=== PATIENT | male | born 1990 | race Caucasian/White ===

== ENCOUNTER 2023-05-07 11:41 | Emergency (ER) | payer OTHER, SELFPAY ==
[2023-05-07 11:42] VITALS: BP 137/83; PULSE 98; RESP 16; TEMP 36.8; O2SAT 98; BMI 29.7
--- NOTE | 2023-05-07 12:14 | EKG12_ITS ---
Test Reason : CP/ARM PAIN Blood Pressure : / mmHG Vent. Rate : 080 BPM Atrial Rate : 080 BPM P-R Int : 142 ms QRS Dur : 082 ms QT Int : 350 ms P-R-T Axes : 054 074 049 degrees QTc Int : 403 ms Normal sinus rhythm with sinus arrhythmia Normal ECG Confirmed by SOLO MORGAN, PHANI ([id number]), art editor MIRIAN MANTILLA ([id number]) on 05/10/2023 10:14:54 AM Referred By: NINA/MARIA DOLORES Confirmed By:PHANI BANDA MD
[2023-05-07 12:30] LABS: Absolute Lymphocyte Count 1.58 X10^3/uL (0.83-4.51); Absolute Neutrophil Count 2.4 X10^3/uL (2.0-7.7); Basophil# 0.04 X10^3/uL; Basophil% 0.9 % (0-1); Hematocrit 43.9 % (40-54); Lymphocyte # 1.58 X10^3/ul (0.83-4.51); Lymphocyte % 36.9 % (19-41); Mean Corp Hgb Conc 34.2 g/dL (32-36); Mean Corpuscular Hgb 29.9 pg (27.0-32.0); Mean Corpuscular Volume 87.6 fL (80-94); Mean Platelet Vol. 9.8 fl (6.2-12.0); Monocyte# 0.31 X10^3/uL; Monocyte% 7.2 % (0-10); NRBC Flagged by Analyzer 0 % (0-5); Neutrophil # 2.35 X10^3/uL (2.7-7.7); Platelet Count 227 K/mm3 (150-450); RBC Distribution Width CV 11.6 % (11.6-14.6); RBC Distribution Width SD 37.2 fl (35.1-43.9); Red Blood Count 5.01 M/mm3 (4.6-6.2); White Blood Count 4.3 K/mm3 (4.4-11.0)
[2023-05-07 12:32] VITALS: O2SAT 98
--- NOTE | 2023-05-07 12:32 | ED.VIS.CHEST ---
HPI History of Present Illness Chief Complaint: Chest Pain Detail of Chief Complaint: Left-sided chest pain. Informant: patient Onset/Context/Timing Onset: Days Activity at onset: gradual Timing: Intermittent Quality: Positive for Pain Location: Left Parasternal and Left Chest Current Severity: Mild Maximum Severity: Mild Worsened By: Nothing Relieved By: Nothing Associated Symptoms: Negative for Nausea, Vomiting, Diaphoresis, Dyspnea, Cough, Fever, Lightheadedness, Acid Reflux or Palpitations Narrative Narrative: 33-year-old healthy male no significant past medical history. Currently on no medications. States the last 1 to 2 weeks he has had intermittent left-sided chest pain. He describes it as a discomfort. It is not associated with exertion. Denies any trouble walking. Denies any shortness of breath. No history of DVT or PE. No leg pain or swelling. No recent travel, surgery or immobilization. Denies any hemoptysis. No pleuritic pain. No cardiac history. Denies any recent illness. He has had some discomfort in the musculature of his upper back and left shoulder. Patient denies any fall injury or trauma. Prior Similar Symptoms: No Recent Illness/Hospitalization: No CVD Risk Factors: Negative for Hypertension, Diabetes, Hypercholesterolemia or Family History 1' </=55 PE Risk Factors: Negative for Recent Travel/Surgery, Recent Immobilization, Prior DVT or PE, Cancer or OCP + Smoking + >/=35 TAD Risk Factors: Negative for Marfan's Syndrome [facility] Medical History No acute medical problems no medical history Home Medications NK 05/07/23 [History Last Taken Unknown] Allergy/AdvReac Type Severity Reaction Status Date / Time No Known Allergies Allergy Verified 05/07/23 11:42 Surgical History no surgical history no surgical history Social History Smoking Status: Never smoker ROS ROS ED ROS Narrative Atypical nonexertional left-sided chest pain. Left upper back and shoulder musculoskeletal pain. Review of Systems ROS Unobtainable: Denies due to encephalopathy Constitutional Constitutional ED: Denies chills or fever(s) Eyes Eyes: Reports none ENT ENT ED: Denies ear pain Cardiovascular Cardiovascular: Reports as per HPI and chest pain; Denies palpitations or racing heartbeat Respiratory/Chest Respiratory/Chest: Denies cough or dyspnea Gastrointestinal Gastrointestinal: Denies abdominal pain, constipation, diarrhea, melena, nausea or vomiting Genitourinary Genitourinary ED: Denies dysuria or hematuria Musculoskeletal Musculoskeletal: Reports back pain; Denies arthralgias or neck pain Integumentary Denies abscess or Abrasions Neurologic Neurologic: Denies headache(s) Psychiatric Psychiatric: Denies anxiety or depression Endocrine Endocrinology: Denies cold intolerance Hematologic/Lymphatic Hematologic/Lymphatic: Denies easy bleeding, easy bruising or lymphadenopathy Allergic/Immunologic Allergic/Immunologic ED: Denies mouth swelling, tongue swelling or urticaria EXAM Physical Exam Narrative Exam Narrative: 33-year-old male vital signs stable afebrile. Pulse ox 98% on room air no signs hypoxia. H EENT exam normal. Neck nontender no JVD. Lungs clear to auscultation bilaterally. Heart regular rate and rhythm rate in the 90s. No murmur. Chest wall nontender. Ribs nontender. Abdomen soft nontender. Moving all 4 extremities. Calves are nontender without edema or cords. Equal symmetrical radial pulses. Upper back he has some mild reproducible musculoskeletal tenderness in the upper left back. There is no signs of trauma. Neurologically is awake and alert with no focal motor deficits. Patient has equal symmetrical radial pulses. Exam benign. Const Vital Signs: 05/07/23 11:42 05/07/23 12:12 05/07/23 12:32 Temperature 98.2 F Temperature Source Temporal Pulse Rate 98 Respiratory Rate 16 Respiratory Effort Normal Non-Labored Blood Pressure 137/83 H Blood Pressure Mean 101 Pulse Ox 98 98 Oxygen Delivery Method Room Air Room Air 05/07/23 14:10 Temperature Temperature Source Pulse Rate 90 Respiratory Rate 17 Respiratory Effort Blood Pressure 116/79 Blood Pressure Mean 91 Pulse Ox 100 Oxygen Delivery Method Room Air Positive well nourished and well developed; Negative for obese, cachectic, contractures or unkempt General Appearance ED: well developed and NAD; Negative for unkempt, cachectic, contractures or pallor Nutritional Appearance: Negative for cachectic or obese HEENT Reports moist mucous membranes normocephalic and atraumatic; Negative for trauma or tenderness Eyes PERRL and EOMs intact bilaterally General Eye ED: Negative for pale conjunctiva, scleral icterus or other Neck no lymphadenopathy, supple and no JVD General: Negative for tenderness Chest Wall inspection of chest normal and palpation of chest normal Chest: Negative for tenderness Resp normal respiratory effort and clear to auscultation bilaterally Effort and Inspection: Negative for respiratory distress Auscultation: Negative for rales, rhonchi or wheezes Cardio regular rate, regular rhythm, S1 normal heart sound, S2 normal heart sound and no murmurs Rhythm: Negative for abnormal rhythm Peripheral Pulses: pulses 2+ throughout GI normal to inspection, nondistended, normoactive bowel sounds, soft to palpation, non-tender, non-distended and no masses Auscultation: Negative for hyperactive bowel sounds Palpation: Negative for splenomegaly or mass Back/Spine no CVA tenderness and no thoracic nor lumbar tenderness General Back: Negative for CVA tenderness Cervical Spine: Negative for cervical spine tenderness Extremity normal to inspection General Extremety ED: Negative for edema, pulses abnormal or tenderness General Extremity: Negative for edema or pulses abnormal Neuro oriented x3 and CN's II-XII intact bilaterally Sensorium / Orientation: awake, alert, oriented to person, oriented to place and oriented to time; Negative for confused, lethargic or stuporous Motor Exam: strength 5/5 throughout Psych mental status grossly normal Appearance: Negative for unkempt Attitude: No agitated Mood & Affect: Negative for depressed, anxious or tearful Skin no rashes or lesions noted and no wounds General Skin Exam: Negative for jaundice or pallor Rashes: No rashes noted Trauma: Negative for abrasion, laceration or puncture Heart Score History: Slightly/Non-Suspicious ECG: Normal Age: </= 45 years Risk Factors: No Risk Factors Troponin: </= Normal Limit Score: 0 MDM MDM MDM Narrative Medical decision making narrative: 33-year-old male with atypical nonreproducible chest pain very well may be musculoskeletal from his upper back. Undergo cardiac workup. He has no DVT or PE risk factors. No family history. And no physical findings of that. I do not think he needs a D-dimer. Will undergo cardiac workup. If it is negative he will be discharged home. Repeat exam the patient is doing well at 2:30 PM. We went over all his test results. They are normal. He has reproducible upper left back soft tissue muscular pain. He will be treated with Motrin. Outpatient follow-up as needed. Patient is comfortable with the plan. History & Record Review Discussion w/independent historian: Patient Lab Data Attestation: I reviewed the patient's lab results. Lab results narrative: CBC white count of 4.3. H&H of 15 and 43. Platelets 227. Chemistries normal. Gap of 4. Normal BUN and creatinine. Glucose 107. Troponin 9. Labs: Laboratory Results - last 24 hr 05/07/23 12:20 WBC 4.3 L RBC 5.01 Hgb 15.0 Hct 43.9 MCV 87.6 MCH 29.9 MCHC 34.2 RDW Std Deviation 37.2 RDW Coeff of Jennifer 11.6 Plt Count 227 MPV 9.8 Immature Gran % (Auto) 0.000 Neut % (Auto) 55.0 Lymph % (Auto) 36.9 [place] % (Auto) 7.2 Eos % (Auto) 0.0 Baso % (Auto) 0.9 Absolute Neuts (auto) 2.4 Absolute Lymphs (auto) 1.58 Nucleated RBC % 0 Sodium 140 Potassium 4.3 Chloride 108 H Carbon Dioxide 28.0 Anion Gap 4 L BUN 16 Creatinine 1.11 Estim Creat Clear Calc 115.25 Est GFR (MDRD) Af Amer 99 Est GFR (MDRD) Non-Af 82 BUN/Creatinine Ratio 14.4 Glucose 107 H Calcium 9.2 Troponin I High Sens 9 Radiography Chest X-Ray - ED: 1 View, Read by ED Physician, Heart, Lungs, Mediastinum, Bony Structures and No Acute Disease Diagnostic Testing: Clinical Impression(s) from Imaging Studies Chest X-Ray 05/07/23 12:35 IMPRESSION: Normal x-ray examination of the chest. Electronically Signed: Daniel Dixon MD at 12:44 EST , Chest x-ray, portable, single view, interpreted by myself and the radiologist shows no acute abnormality. Normal cardiac silhouette. Normal aorta. Normal mediastinum. Normal lung colin. Rhythm Strip Rhythm Strip: Sinus Rhythm Rate: 80 Ectopy: None EKG Initial EKG: Attestation: I personally reviewed and interpreted this EKG as follows: Interpretation: Sinus Rhythm and No Acute Injury Pattern Comments: Normal sinus rhythm rate of 80 no acute signs of VA or ischemia. No S1 every 3 of T3. No old EKG available for comparison. Prior EKG tracings: not available for review Prior: No Prior Discharge Plan Triage Chief Complaint: Chest Pain ED Provider: William iSngh Dx/Rx/DC Orders Clinical Impression: Back strain, Chest pain Instructions: ED Chest Pain, Noncardiac Prescriptions: No Action NK Primary Care Provider: Care Physician,No Primary Referrals: Bienvenido Reyes MD [Med Staff - [employer]] - 1 Week if not improving Care Physician,No Primary [Primary Care Provider] - Activity Restrictions/Additional Instructions: All your test today, EKG and chest x-ray were normal. Leave your discomfort is from strain of the muscle in your left upper back. Motrin for pain. Hot shower, warm bath, hot tub and massage. This should feel better. Follow-up if you are not improving. Disposition Disposition: Home, Self Care
--- NOTE | 2023-05-07 12:35 | RAD_ITS ---
STUDY: X-RAY CHEST REASON FOR EXAM: Male, 33 years old. Chest pain TECHNIQUE: Single AP portable view of the chest. COMPARISON: None. FINDINGS: EKG electrodes are seen. The lungs are clear and expanded. There is no demonstrated pleural abnormality. Normal size heart. Normal mediastinum and ishmael. Normal visualized pulmonary arteries. Normal visualized aortic arch and descending thoracic aorta. Normal visualized thoracic spine. Normal visualized ribs, clavicles, and shoulders. There is no demonstrated abnormality of the visualized soft tissue structures of the upper abdomen. RAD/Chest 1 View (Portable) IMPRESSION: Normal x-ray examination of the chest. Electronically Signed: Daniel Dixon MD at 12:44 EST ,
[2023-05-07 12:45] LABS: Anion Gap 4 (5-15); BUN 16 mg/dL (7-18); BUN/Creat Ratio 14.4 RATIO (10-20); Calcium,Total 9.2 mg/dL (8.5-10.1); Chloride 108 mmol/L (98-107); Creatinine, Serum 1.11 mg/dL (0.70-1.30); EST Glomerular Filtration Rate 82 mL/min (>60); Est Glom Filt Rate - Afr Amer 99 mL/min (>60); Estimated Creatinine Clearance 115.25 ml/min; Glucose 107 mg/dL (74-106); Potassium 4.3 mmol/L (3.5-5.1); Sodium Level 140 mmol/L (136-145); Troponin-I HS 9 pg/mL (3.0-78.0)
[2023-05-07 14:10] VITALS: BP 116/79; PULSE 90; RESP 17; O2SAT 100
[2023-05-07 14:54] VITALS: PULSE 70; RESP 16; O2SAT 99
== END 2023-05-07 14:54 | disposition home or self-care (01) ==
PROVIDERS: Emergency Provider Emergency Medicine; Visit Provider Emergency Medicine
DX: R07.89 Other chest pain (principal); S29.012A Strain of muscle and tendon of back wall of thorax, initial encounter
CPT/HCPCS: 71045; 80048; 84484; 85025; 93005; 99284; A4216